=== PATIENT | female | born 1975 | race Caucasian/White ===

== ENCOUNTER 2022-03-19 15:10 | Emergency (ER) | payer BC ==
[~2022-03-19] VITALS: Ht 172.7 cm; Wt 61.2 kg
[2022-03-19] MEDS ORDERED: WELLBUTRIN SR200 MG PO (15:28)
[2022-03-19] MEDS ORDERED: LEVOTHYROXINE50 MC1 PO (15:28)
[2022-03-19] MEDS ORDERED: ASPIRIN81 MG PO (15:29)
[2022-03-19] MEDS ORDERED: AMOXICILLIN500 MG PO (15:39)
== END 2022-03-19 15:50 | disposition home or self-care (01) ==
LOC: ED 15:10
DX: J01.90 Acute sinusitis, unspecified (principal)
CPT/HCPCS: 99283